=== PATIENT | female | born 1945 | race Caucasian/White ===

== ENCOUNTER 2018-04-14 12:40 | Inpatient (IN) | payer MEDICARE, BC ==
[2018-04-14] MEDS ORDERED: RX INFO: IV CONTRAST WAS GIVEN 1 EACH MISC MISCELLANE PRN (13:30)
--- NOTE | 2018-04-14 13:36 | ED ---
General Adult HPI - General Chief complaint: Neuro Symptoms/Deficit Stated complaint: poss stroke Time Seen by Provider: 04/14/18 13:16 Source: patient Mode of arrival: EMS Limitations: no limitations - History of Present Illness Initial comments: Patient is a 72-year-old female with a previous medical history of hypertension , and a "skipped heartbeat", who presents with a chief complaint of right-sided upper and lower extremity numbness starting at 9:00 this morning. The patient states that she had some trouble walking after and her noticed that she was veering to the right. The patient went to urgent care initially for evaluation and was sent to the emergency Department. Since that time her symptoms have completely resolved. Patient cannot identify an inciting incident. There are no aggravating or alleviating factors. The patient does not have any previous episodes the same. Patient states that she took 1 or 2 full-size aspirins prior to arrival. - Related Data Home Medications Medication Instructions Recorded Confirmed Diltiazem Cd [Cardizem Cd] 180 mg PO DAILY 04/14/18 04/14/18 Allergies Allergy/AdvReac Type Severity Reaction Status Date / Time No Known Allergies Allergy Verified 04/14/18 14:03 Review of Systems ROS Statement: Those systems with pertinent positive or pertinent negative responses have been documented in the HPI. ROS Other: All systems not noted in ROS Statement are negative. Neurological: Reports: weakness, numbness, paresthesias Past Medical History Past Medical History: Hypertension Additional Past Medical History / Comment(s): occasional "skipped heart beat" History of Any Multi-Drug Resistant Organisms: None Reported Past Surgical History: No Surgical Hx Reported Past Psychological History: No Psychological Hx Reported Smoking Status: Never smoker Past Alcohol Use History: Rare Past Drug Use History: None Reported General Exam Limitations: no limitations General appearance: alert, in no apparent distress Head exam: Present: atraumatic, normocephalic Eye exam: Present: normal appearance, PERRL, EOMI Pupils: Present: normal accommodation. Absent: irregular, unequal ENT exam: Present: normal exam, mucous membranes moist Neck exam: Present: normal inspection Respiratory exam: Present: normal lung sounds bilaterally. Absent: respiratory distress, wheezes Cardiovascular Exam: Present: regular rate, normal rhythm GI/Abdominal exam: Present: soft. Absent: distended, tenderness Rectal exam: Present: deferred Extremities exam: Present: normal inspection, full ROM Back exam: Present: normal inspection Neurological exam: Present: alert, oriented X3, CN II-XII intact, normal gait. Absent: motor sensory deficit Psychiatric exam: Present: normal affect, normal mood Skin exam: Present: warm, dry, intact Course Vital Signs 04/14/18 04/14/18 04/14/18 12:52 14:00 15:00 Temperature 98.7 F Pulse Rate 92 76 68 Respiratory 18 18 18 Rate Blood Pressure 168/77 164/78 161/74 O2 Sat by Pulse 96 96 96 Oximetry Medical Decision Making - Medical Decision Making Patient presents with a chief complaint of right-sided upper and lower extremity weakness and numbness. On initial evaluation, vital signs are stable , patient is in no acute distress. Patient's symptoms started at 9:00 this morning however they have completely resolved at this time, patient is not a TPA candidate given resolution of her symptoms. EKG performed at 1307 shows sinus rhythm with PVCs, ventricular rate is 73 bpm. EKG is otherwise unremarkable. Patient took 1-2 full-size aspirin prior to arrival to the emergency department. Patient will be evaluated CT of the head without contrast followed by CT angiogram of the head and neck. Patient cardiac labs were sent. Discussed disposition with the patient, I recommended admission for further workup. Patient is agreeable at this time. On initial evaluation, NIH stroke scale is 0. 3:53 PM Lab evaluation of this patient is unremarkable. Computed tomography scan of the head without contrast shows no acute process. CT angiogram of the neck does not show any evidence of aneurysm, or high-grade stenosis. This case was discussed with Dr. Baker who excepts admission. Care plan discussed with the patient, she is agreeable. - Lab Data Result diagrams: 04/14/18 13:10 04/14/18 13:10 Lab Results 04/14/18 04/14/18 04/14/18 Range/Units 13:01 13:10 13:10 WBC 5.4 (3.8-10.6) k/uL RBC 4.59 (3.80-5.40) m/uL Hgb 14.9 (11.4-16.0) gm/dL Hct 42.0 (34.0-46.0) % MCV 91.5 (80.0-100.0) fL MCH 32.4 (25.0-35.0) pg MCHC 35.4 (31.0-37.0) g/dL RDW 12.7 (11.5-15.5) % Plt Count 271 (150-450) k/uL Neutrophils % 56 % Lymphocytes % 32 % Monocytes % 7 % Eosinophils % 2 % Basophils % 1 % Neutrophils # 3.0 (1.3-7.7) k/uL Lymphocytes # 1.8 (1.0-4.8) k/uL Monocytes # 0.4 (0-1.0) k/uL Eosinophils # 0.1 (0-0.7) k/uL Basophils # 0.0 (0-0.2) k/uL Sodium 143 (137-145) mmol/L Potassium 3.7 (3.5-5.1) mmol/L Chloride 105 (98-107) mmol/L Carbon Dioxide 25 (22-30) mmol/L Anion Gap 13 mmol/L BUN 13 (7-17) mg/dL Creatinine 0.64 (0.52-1.04) mg/dL Est GFR (CKD-EPI)AfAm >90 (>60 ml/min/1.73 sqM) Est GFR (CKD-EPI)NonAf >90 (>60 ml/min/1.73 sqM) Glucose 86 (74-99) mg/dL POC Glucose (mg/dL) 90 (75-99) mg/dL POC Glu Supervisor Drapery Hanging ID Wander Spence Calcium 9.0 (8.4-10.2) mg/dL Magnesium 2.2 (1.6-2.3) mg/dL Troponin I (0.000-0.034) ng/mL NT-Pro-B Natriuret Pep pg/mL 04/14/18 04/14/18 Range/Units 13:10 13:10 WBC (3.8-10.6) k/uL RBC (3.80-5.40) m/uL Hgb (11.4-16.0) gm/dL Hct (34.0-46.0) % MCV (80.0-100.0) fL MCH (25.0-35.0) pg MCHC (31.0-37.0) g/dL RDW (11.5-15.5) % Plt Count (150-450) k/uL Neutrophils % % Lymphocytes % % Monocytes % % Eosinophils % % Basophils % % Neutrophils # (1.3-7.7) k/uL Lymphocytes # (1.0-4.8) k/uL Monocytes # (0-1.0) k/uL Eosinophils # (0-0.7) k/uL Basophils # (0-0.2) k/uL Sodium (137-145) mmol/L Potassium (3.5-5.1) mmol/L Chloride (98-107) mmol/L Carbon Dioxide (22-30) mmol/L Anion Gap mmol/L BUN (7-17) mg/dL Creatinine (0.52-1.04) mg/dL Est GFR (CKD-EPI)AfAm (>60 ml/min/1.73 sqM) Est GFR (CKD-EPI)NonAf (>60 ml/min/1.73 sqM) Glucose (74-99) mg/dL POC Glucose (mg/dL) (75-99) mg/dL POC Glu Supervisor Drapery Hanging ID Calcium (8.4-10.2) mg/dL Magnesium (1.6-2.3) mg/dL Troponin I <0.012 (0.000-0.034) ng/mL NT-Pro-B Natriuret Pep 62 pg/mL Disposition Clinical Impression: Transient cerebral ischemia Disposition: ADMITTED IP TO THIS HOSP Condition: Good Is patient prescribed a controlled substance at d/c from ED?: No Referrals: Nonstaff,Physician [REFERRING] - 1-2 days Decision to Admit Reason: Admit from EC - Out of Hospital Transfer - Req. Specs Out of Hospital Transfer - Requested Specifics: Telemetry Unit
[2018-04-14 13:42] LABS: Glucose,Whole Blood 90 mg/dL (75-99)
[2018-04-14 13:46] LABS: Basophils % (A) 1 %; Eosinophils # (A) 0.1 k/uL (0-0.7); Eosinophils % (A) 2 %; HGB 14.9 gm/dL (11.4-16.0); Lymphocytes # (A) 1.8 k/uL (1.0-4.8); Lymphocytes % (A) 32 %; MCH 32.4 pg (25.0-35.0); MCHC 35.4 g/dL (31.0-37.0); MCV 91.5 fL (80.0-100.0); Mean Platelet Volume 6.9; Monocytes # (A) 0.4 k/uL (0-1.0); Monocytes % (A) 7 %; Neutrophils % (A) 56 %; Platelet Count 271 k/uL (150-450); RBC 4.59 m/uL (3.80-5.40); RDW 12.7 % (11.5-15.5); WBC 5.4 k/uL (3.8-10.6)
[2018-04-14 13:55] LABS: Anion Gap 13 mmol/L; Blood Urea Nitrogen 13 mg/dL (7-17); Carbon Dioxide 25 mmol/L (22-30); Chloride 105 mmol/L (98-107); Glucose 86 mg/dL (74-99); Magnesium 2.2 mg/dL (1.6-2.3); Potassium 3.7 mmol/L (3.5-5.1); Sodium 143 mmol/L (137-145)
--- NOTE | 2018-04-14 14:31 | CT ---
EXAMINATION TYPE: CT brain wo con DATE OF EXAM: 04/14/2018 COMPARISON: NONE HISTORY: 72-year-old female with right paranasal sinuses and mastoid air cells well pneumatized. Orbi ts and globes are intact. Sided weakness TECHNIQUE: Examination was done in axial plane without intravenous contrast. Coronal and sagittal r econstructions performed. CT DLP: 945 mGycm Automated exposure control for dose reduction was used. FINDINGS: There is no evidence of acute intracranial hemorrhage, acute ischemic changes, mass, mass-effect, or extra-axial fluid collection. There is no effacement of cerebral sulci or basal subarachnoid cister ns. There is no hydrocephalus. There is no midline shift. Rosario-white matter distinction is preserv ed. There are mild white matter hypodensities especially in the biparietal lobes. Paranasal sinuses and mastoid air cells well pneumatized. Orbits and globes are intact. IMPRESSION: No acute intracranial abnormality seen. Mild patchy changes of chronic small vessel ischemic disease.
--- NOTE | 2018-04-14 14:39 | CT ---
EXAMINATION TYPE: CT angio head neck DATE OF EXAM: 04/14/2018 COMPARISON: CT brain same day HISTORY: 72-year-old female TECHNIQUE: Contiguous axial scanning of the head and neck performed with IV Contrast, patient injecte d with 65 mL of Isovue 370. Coronal/sagittal MIP reconstructions performed. 3-D reconstructions gener ated on a dedicated independent workstation. CT DLP: 945.5 mGycm Automated exposure control for dose reduction was used. FINDINGS: Neck: Some heterogeneous T2 the thyroid gland suggesting underlying 5 mm smaller nodules. Bovine configuration to the aortic arch. Patent arch vessel origins. The right common carotid artery is widely patent. There are mild apical scarring calcifications and p laque at the right carotid bulb. Mild tortuosity of the upper right internal carotid artery. The inte rnal carotid artery otherwise remains patent. The left common carotid artery is patent. Mild tortuosity upper left internal carotid artery. The int ernal carotid artery remains widely patent. The bilateral vertebral artery origins are patent. The vertebral arteries are codominant and remain p atent throughout their course. Head: The posterior circulation is patent. There is mild atherosclerotic narrowing of the bilateral supraclinoid internal carotid arteries. No significant stenosis, arterial occlusion, or aneurysmal change is seen. IMPRESSION: 1. NECK: ONLY MINIMAL ATHEROSCLEROTIC CHANGE AT THE RIGHT CAROTID BULB. NO HEMODYNAMICALLY SIGNIFICAN T STENOSIS OF THE CAROTID OR VERTEBRAL ARTERIES OF THE NECK. 2. HEAD: MILD ATHEROSCLEROTIC NARROWING OF THE BILATERAL SUPRACLINOID INTERNAL CAROTID ARTERIES. NO S IGNIFICANT STENOSIS OR ARTERIAL OCCLUSION SEEN.
[2018-04-14] MEDS ORDERED: NALOXONE 0.4 MG/ML 1 ML VIAL IV PRN (16:23)
--- NOTE | 2018-04-14 22:43 | HP ---
HISTORY AND PHYSICAL DATE OF SERVICE: 04/14/2018 PRESENTING COMPLAINT: Right-sided weakness and numbness. HISTORY OF PRESENTING COMPLAINT: A very pleasant 72-year-old patient who has just moved to town, has not established a family doctor. Patient had a history of hypertension, as then taken off medication. Blood pressure is controlled. Patient has had benign tremors. Patient around 9:00 this morning noticed that the right distal arm felt some numbness and tingling and the right leg was feeling a bit weird, slightly weak, an abnormal sensation. The patient took an aspirin and felt a bit better, then the symptoms came back again, and she continued to feel weak on the right side; apparently the right leg. The patient decided to come in. The right leg still feels the same after several hours. Denies any headache. No nausea, vomiting. No change in vision. Has no trouble swallowing. No prior history of stroke. Initial CT scan of the brain has been unremarkable. REVIEW OF SYSTEMS: CONSTITUTIONAL: None. HEENT: None. RESPIRATORY: None. CARDIOVASCULAR: None. GASTROINTESTINAL: None. GENITOURINARY: None. MUSCULOSKELETAL: None. DERMATOLOGICAL: None. HEMATOLOGICAL: None. LYMPHATICS: None. PSYCHIATRY: None. NEUROLOGICAL: As above except for some tremors. PAST MEDICAL HISTORY: 1. Hypertension, now not taking any medications. 2. Occasional skipped heartbeat. 3. Beginning of cataract. PAST SURGICAL HISTORY: 1. Adenoidectomy. 2. Tonsillectomy. 3. Colonoscopy. SOCIAL HISTORY: Patient smoked for about 12 years, stopped about 41 years ago. . Alcohol occasionally. FAMILY HISTORY: Reviewed; noncontributory to presentation. HOME MEDICATIONS: Cardizem CD 180 mg a day. ALLERGIES: NONE. PHYSICAL EXAMINATION: Temperature 98.7, pulse 72, respiration 18, blood pressure 168/77, pulse ox 96% on room air. GENERAL APPEARANCE: Average build. Lying in bed, comfortable. EYES: Pupils equal. Conjunctivae normal. HEENT: External appearance of nose and ears normal. Oral cavity normal. NECK: JVD not raised. Mass not palpable. RESPIRATORY: Effort normal. Lungs are clear. CARDIOVASCULAR: First and second sounds normal. No edema. ABDOMEN: Soft, nontender. Liver and spleen not palpable. LYMPHATIC: No lymph node palpable in neck or axillae. PSYCHIATRY: Alert and oriented x3. Mood and affect normal. NEUROLOGICAL: Pupils equal. Cranial nerves grossly intact. Power and sensation -- noted that patient's right leg power is 4/5, decreased compared to the left. otherwise is grossly preserved. ASSESSMENT: 1. Possible acute stroke, likely ischemic in nature, in a right-handed patient, manifesting as weakness predominantly in the right leg, some numbness and tingling in the right upper extremity, distal part, though that is somewhat improved. 2. Possible essential hypertension. 3. Benign essential tremors. PLAN: We will order a carotid Doppler, 2-D echo, MRI of the brain. Patient is started on aspirin and Lipitor. In the morning will check a lipid fasting profile. Will get Physical Therapy to see the patient. The patient wishes to follow up with Dr. Garcia after discharge and will establish the same. Care was discussed with the patient. Neurology was consulted. Neuro checks will be done. MMODL / IJN: [id number] /
[2018-04-15 06:16] LABS: Basophils % (A) 1 %; Eosinophils # (A) 0.2 k/uL (0-0.7); Eosinophils % (A) 3 %; HCT 43.7 % (34.0-46.0); HGB 15.1 gm/dL (11.4-16.0); Lymphocytes # (A) 1.7 k/uL (1.0-4.8); Lymphocytes % (A) 31 %; MCH 32.3 pg (25.0-35.0); MCHC 34.5 g/dL (31.0-37.0); MCV 93.8 fL (80.0-100.0); Mean Platelet Volume 7.3; Monocytes # (A) 0.3 k/uL (0-1.0); Monocytes % (A) 5 %; Neutrophils # (A) 3.1 k/uL (1.3-7.7); Neutrophils % (A) 58 %; Platelet Count 242 k/uL (150-450); RBC 4.66 m/uL (3.80-5.40); RDW 12.8 % (11.5-15.5); WBC 5.4 k/uL (3.8-10.6)
[2018-04-15 06:28] LABS: Anion Gap 13 mmol/L; Blood Urea Nitrogen 12 mg/dL (7-17); Calcium 9.1 mg/dL (8.4-10.2); Carbon Dioxide 26 mmol/L (22-30); Chloride 104 mmol/L (98-107); Cholesterol 205 mg/dL (<200); Glucose 136 mg/dL (74-99); HDL Cholesterol 62 mg/dL (40-60); LDL Cholesterol,Calculated 105 mg/dL (0-99); Potassium 3.4 mmol/L (3.5-5.1); Sodium 143 mmol/L (137-145); Triglycerides 190 mg/dL (<150)
[2018-04-15] MEDS: ENOXAPARIN 40 MG/0.4 ML SYRINGE SQ SCH (08:21)
[2018-04-15] MEDS: DILTIAZEM CD 180 MG CAP.ER.24H PO SCH (08:21)
[2018-04-15] MEDS: ATORVASTATIN 40 MG TAB PO SCH (08:21)
[2018-04-15] MEDS: ASPIRIN 325 MG TAB PO SCH (08:21)
--- NOTE | 2018-04-15 09:29 | CONS ---
CONSULTATION DATE OF CONSULTATION: 04/14/2018 CHIEF COMPLAINT: Transient ischemic attack. HISTORY OF PRESENT ILLNESS: The patient is a pleasant 72-year-old female who is being evaluated by the neurology service per the request of Dr. Baker for a transient ischemic attack. The patient was brought into [facility] Emergency Room after she had a sudden onset of numbness and tingling involving her right side. The patient also noticed some weakness on that side. The patient noticed that she was having difficulty walking and she was veering to the right side. She initially went to an urgent care clinic and then was brought to the emergency room. She denies any previous symptoms similar to this, but does report a family history of strokes. She is not on any antiplatelet medication at home. A CT scan of the brain was done, which showed no acute abnormalities. She did have small vessel ischemic changes. A CT angiogram of the brain and neck were reviewed and they showed no significant stenosis. Her CBC, basic metabolic profile and cardiac enzymes were normal. At the time of my evaluation, the patient was lying in her bed and appears to be in no acute distress. She denied any recurrence of any neurological symptoms since her arrival. Overall, her right-sided numbness and weakness lasted approximately half one hour. PAST MEDICAL HISTORY: Hypertension. SOCIAL HISTORY: She denies any tobacco or drug use. She rarely drinks alcohol. FAMILY HISTORY: Positive for strokes. HOME MEDICATIONS: Reviewed in the chart. ALLERGIES: No known drug allergies. REVIEW OF SYSTEM: CONSTITUTIONAL: Negative. EYES: Negative. HEENT: Negative. CARDIOVASCULAR: Negative. RESPIRATORY: Negative. NEUROLOGICAL: As mentioned above. GASTROINTESTINAL: Negative. PSYCHIATRIC: Negative. MUSCULOSKELETAL: Negative. DERMATOLOGICAL: Negative. ENDOCRINE: Negative. PHYSICAL EXAM: Vital signs show a temperature of 97.1, pulse 80, respirations 16, blood pressure 162/71. GENERAL APPEARANCE: The patient is a well-developed female who appears to be in no acute distress. HEENT: Normocephalic, atraumatic, no facial asymmetry is seen. NECK: Supple with no masses felt. CARDIOVASCULAR: Regular rate and rhythm. ABDOMEN: Nontender, nondistended. Extremities showed no edema or clubbing. NEUROLOGICAL EXAM: The patient is alert, aware and oriented x3. Speech and language are normal. Strength is full in all 4 extremities. Sensory exam was normal to light touch in all 4 extremities. No facial asymmetry is seen on cranial nerve testing. No tremors or seizure-like activity is seen. IMPRESSION: 1. Transient ischemic attack. 2. Right hemiparesis, resolved. 3. Right-sided numbness, resolved. 4. Small vessel ischemic disease. 5. Hypertension. RECOMMENDATION: The patient does appear to have suffered a transient ischemic attack with a transient episode of right-sided numbness and weakness. Her symptoms continue to be resolved at this time. I will keep her on aspirin [address] angiogram showed no significant stenosis. I will order a fasting lipid panel, EEG, and serum homocysteine level. Continue IV hydration as tolerated. I discussed with the patient her risk factors for future strokes. She was advised to seek immediate medical attention if any further stroke-like symptoms occur. I will continue to follow with you. Further recommendations to follow. Thank you for allowing me to participate in the care of your patient. If you have any questions, please feel free to contact me. ELO / OLLIE: [id number] /
[2018-04-15 12:14] VITALS: RESP 18
--- NOTE | 2018-04-15 14:11 | EEG ---
ELECTROENCEPHALOGRAM REPORT DATE OF SERVICE: 04/15/2018 REASON FOR TESTING: Transient ischemic attack. DESCRIPTION OF THE PROCEDURE: This EEG was performed using a 21 channel digital electroencephalograph, following international 10-20 system. DESCRIPTION OF THE RECORDING: From the beginning of the tracing, and with the patient's eyes closed, the background rhythm was mostly consisting of 10 Hz alpha frequency in the posterior occipital leads. No obvious asymmetry is seen. Photic stimulation was performed with a minimal driving response seen. No pathological waves were elicited. Hyperventilation was not performed. Rare movement artifacts are seen. The patient does reach stage II of sleep during the tracing and occasional sleep spindles are seen. No epileptiform discharges were seen throughout the tracing. Her EKG lead showed a regular rate and rhythm. INTERPRETATION: This asleep and awake EEG can be considered within normal limits. There was no asymmetry seen. No epileptiform discharges were noticed. The absence of epileptiform discharges does not rule out the diagnosis of epilepsy, therefore clinical correlation is recommended. MMANGELIA / OLLIE: [id number] /
--- NOTE | 2018-04-15 16:19 | P.PN ---
Subjective Progress Note Date: 04/15/18 Patient is a pleasant 72-year-old female who is being followed by the neurology service for transient ischemic attack. Patient had sudden onset of numbness and tingling in the right side. Patient states she is not quite back to baseline yet. Patient noticed right lower extremity weakness as compared to the left side. Patient came to [facility] for further evaluation. Computed tomography scan of the brain was done which showed no acute abnormalities. Computed tomography scan did show small vessel ischemic changes. CT angios of the brain and neck were reviewed and showed no significant stenosis. Patient denies being on antiplatelet therapy at home. At the time of my evaluation, patient is lying in bed and appears to be in no acute distress. Patient denies any worsening of neurological symptoms. Objective - Vital Signs Vital signs: Vital Signs Temp 97.5 F L 04/15/18 04:00 Pulse 100 04/15/18 12:00 Resp 18 04/15/18 12:00 BP 181/87 04/15/18 12:00 Pulse Ox 94 L 04/15/18 12:00 Intake & Output 04/14/18 04/15/18 04/15/18 18:59 06:59 18:59 Intake Total 240 477 Balance 240 477 Weight 62.9 kg 62 kg Intake: Oral 240 477 Other: Voiding Method Toilet Toilet # Voids 1 1 - Exam PHYSICAL EXAM: GENERAL APPEARANCE: Patient is a well-developed, female who appears to be in no acute distress. HEENT: Normocephalic, atraumatic, no facial asymmetry is seen. Neck is supple with no masses felt. CARDIOVASCULAR: Regular rate and rhythm. ABDOMEN: Nontender, nondistended. EXTREMITIES: Show no edema or clubbing. NEUROLOGICAL EXAM: Patient is awake, alert, and oriented 3. Speech and then which are normal. Strength is full in bilateral upper extremities. Strength is 5 minus/5 in right lower extremity and 5/5 in left lower extremity. Sensory exam is normal to light touch in all 4 extremities. No facial asymmetry seen on cranial nerve testing. No tremors or seizure-like activity noted. Sensory exam is normal to light touch - Labs CBC & Chem 7: 04/15/18 05:30 04/15/18 05:30 Labs: Abnormal Lab Results - Last 24 Hours (Table) 05/16/18 Range/Units 05:30 Potassium 3.4 L (3.5-5.1) mmol/L Glucose 136 H (74-99) mg/dL Triglycerides 190 H (<150) mg/dL Cholesterol 205 H (<200) mg/dL LDL Cholesterol, Calc 105 H (0-99) mg/dL HDL Cholesterol 62 H (40-60) mg/dL Assessment and Plan Plan: Impression: 1. Transient ischemic attack 2. Right hemiparesis, resolving 3. Right-sided numbness, resolved 4. Small vessel ischemic disease 5. Hypertension Recommendation: Patient does appear to have suffered a transient ischemic attack with a transient episode of right-sided numbness and weakness. Right lower extremity weakness is improved but continues. Patient was working with physical therapy this morning and reports difficulty ambulating. I recommend to continue aspirin 325 mg daily. As you recall, CT angiogram did not show any significant stenosis. I will order an MRI. Lipid panel is elevated and I recommend to continue statin. EEG was normal. I recommend good blood pressure control as it has been elevated at times. Serum homocystine level is pending. Continue current medical management. Continue neurological checks. I will continue to follow with you. Further recommendations to follow. I performed an examination of the patient and discussed the management with the SCREEN OPERATOR. I have reviewed the SCREEN OPERATOR notes and agree with the findings and plan of care.
--- NOTE | 2018-04-15 19:44 | PN ---
PROGRESS NOTE DATE OF SERVICE: 04/15/2018 PRESENTING COMPLAINT: Possible stroke. INTERVAL HISTORY: This patient presented with right arm weakness, right leg weakness. Overnight patient's right leg has still remained weak and having some trouble with the right hand, dropping things. Pending MRI. No other new neurological symptoms. REVIEW OF SYSTEMS: Done for constitutional, cardiovascular, GI, pulmonary, neuro; relevant findings as above. CURRENT MEDICATIONS: Reviewed. They include aspirin, Lipitor, Cardizem CD. PHYSICAL EXAMINATION: Temperature 97.5, pulse 70, respiration 16, blood pressure 164/71, pulse ox 93% on room air. GENERAL APPEARANCE: Sitting up, comfortable. EYES: Pupils equal. Conjunctivae normal. HEENT: External appearance of nose and ears normal. Oral cavity normal. NECK: JVD not raised. Mass not palpable. RESPIRATORY: Effort normal. Lungs are clear. CARDIOVASCULAR: First and second sounds normal. No edema. ABDOMEN: Soft, nontender. Liver and spleen not palpable. PSYCHIATRY: Alert and oriented x3. Mood and affect normal. NEUROLOGICAL: Power on the right leg is 4/5. Patient also has right distal arm weakness in fine movements. INVESTIGATIONS: EEG came back within normal limits. ASSESSMENT: 1. Acute stroke, likely ischemic in nature, in a right-handed patient with persistent weakness. 2. Essential hypertension. 3. Benign essential tremors. 4. Hyperlipidemia, uncontrolled, with an LDL of 105 and triglycerides of 190. PLAN: Continue current medication and treatment plan. Care was discussed with the patient. Awaiting MRI. Patient was seen by Physical Therapy. MMTHIAGOL / SUKHDEEPN: [id number] /
--- NOTE | 2018-04-15 20:16 | ECHOF ---
Referral Reason:r/o thrombus MEASUREMENTS -------- HEIGHT: 157.5 cm WEIGHT: 59.9 kg BP: 181/80 RVIDd: 2.8 cm (< 3.3) IVSd: 1.3 cm (0.6 - 1.1) LVIDd: 4.0 cm (3.9 - 5.3) LVPWd: 1.3 cm (0.6 - 1.1) IVSs: 1.5 cm LVIDs: 2.8 cm LVPWs: 1.4 cm LA Diam: 2.8 cm (2.7 - 3.8) LAESV Index (A-L): 21.52 ml/m Ao Diam: 2.5 cm (2.0 - 3.7) AV Cusp: 2.0 cm (1.5 - 2.6) MV EXCURSION: 17.614 mm (> 18.000) MV EF SLOPE: 117 mm/s (70 - 150) EPSS: 0.2 cm MV E Ishmael: 0.57 m/s MV DecT: 247 ms MV A Ishmael: 0.74 m/s MV E/A Ratio: 0.77 FINDINGS -------- Sinus rhythm. This was a technically adequate study. The left ventricular size is normal. There is mild concentric left ventricular hypertrophy. Overa ll left ventricular systolic function is normal with, an EF between 55 - 60 %. The right ventricle is normal in size. Normal LA size by volume 22+/-6 ml/m2. The right atrium is normal in size. There is mild aortic valve sclerosis. The mitral valve is normal. The tricuspid valve appears structurally normal. There is no pulmonic regurgitation present. The aortic root size is normal. Normal inferior vena cava with normal inspiratory collapse consistent with estimated right atrial pre ssure of 5 mmHg. There is no pericardial effusion. CONCLUSIONS -------- 1. Sinus rhythm. 2. This was a technically adequate study. 3. The left ventricular size is normal. 4. There is mild concentric left ventricular hypertrophy. 5. Overall left ventricular systolic function is normal with, an EF between 55 - 60 %. 6. Normal LA size by volume 22+/-6 ml/m2. 7. There is mild aortic valve sclerosis. 8. The mitral valve is normal. 9. The tricuspid valve appears structurally normal. 10. There is no pulmonic regurgitation present. 11. The aortic root size is normal. 12. Normal inferior vena cava with normal inspiratory collapse consistent with estimated right atrial pressure of 5 mmHg. 13. There is no pericardial effusion. WAREHOUSE ASSOCIATE: Tiffanie Palma RDCS
[2018-04-15] MEDS ORDERED: POTASSIUM CHLORIDE ER 20 MEQ TAB.ER PO STA (21:55)
[2018-04-15] MEDS ORDERED: MELATONIN 5 MG TABLET PO SCH (22:00)
--- NOTE | 2018-04-16 00:02 | MR ---
History right-sided weakness. Comparison none. TECHNIQUE: Multiplanar multiecho imaging of the brain was performed with no contrast. FINDINGS: There is mild cerebral cortical atrophy appropriate for age. There is no mass effect nor midline shif t. There is no evidence of intracranial hemorrhage. There is a 2 x 1 cm area of increased signal on t he diffusion images in the villalobos-white matter junction left parietal lobe. There are some patchy areas of increased signal in the periventricular white matter on the T2 and FLAIR images. There are small foci of increased signal also in the central terrence that measure less than 5 mm. The total number is m ore than 20 and these measure up to 1.5 cm. There is a small mucous retention cyst in the right side of sphenoid sinus. Sella turcica appears normal. CONCLUSION: Numerous white matter lesions could relate to demyelinating disease or chronic small vessel ischemia. There is evidence for an acute lacunar infarct in the left parietal lobe white matter. No evidence of cortical infarct.
[2018-04-16 06:17] LABS: Anion Gap 12 mmol/L; Blood Urea Nitrogen 16 mg/dL (7-17); Calcium 8.9 mg/dL (8.4-10.2); Carbon Dioxide 24 mmol/L (22-30); Chloride 107 mmol/L (98-107); Glucose 108 mg/dL (74-99); Sodium 143 mmol/L (137-145)
[2018-04-16] MEDS: ASPIRIN 325 MG TAB PO SCH (08:22)
[2018-04-16] MEDS: ATORVASTATIN 40 MG TAB PO SCH (08:22)
[2018-04-16] MEDS: ENOXAPARIN 40 MG/0.4 ML SYRINGE SQ SCH (08:22)
[2018-04-16] MEDS: DILTIAZEM CD 180 MG CAP.ER.24H PO SCH (08:22)
[2018-04-16 08:29] VITALS: PULSE 97
[2018-04-16 12:01] VITALS: BP 133/80; TEMP 97.7
--- NOTE | 2018-04-16 17:47 | P.PN ---
Subjective Progress Note Date: 04/16/18 Patient is a pleasant 72-year-old female who is being followed by the neurology service for transient ischemic attack. Patient had sudden onset of numbness and tingling in the right side. Patient states she is not quite back to baseline yet. Patient noticed right lower extremity weakness as compared to the left side. Patient came to [facility] for further evaluation. Computed tomography scan of the brain was done which showed no acute abnormalities. Computed tomography scan did show small vessel ischemic changes. CT angios of the brain and neck were reviewed and showed no significant stenosis. Patient denies being on antiplatelet therapy at home. At the time of my evaluation, patient is lying in bed and appears to be in no acute distress. Patient denies any worsening of neurological symptoms. 04/16/2018 Patient is a pleasant 72-year-old female who is being followed by the neurology service for CVA. Patient came to [facility] with sudden onset of numbness and tingling on the right side. Patient does state this continues but to a lesser degree. CT of the brain showed no acute abnormalities. CTA of the brain and neck showed no significant stenosis. MRI of the brain showed left parietal lobe acute lacunar infarct. No new neurological complaints. At the time of my evaluation, patient's sitting up in bed and preparing to go home. Objective - Vital Signs Vital signs: Vital Signs Temp 97.7 F 04/16/18 11:58 Pulse 97 04/16/18 11:58 Resp 18 04/16/18 11:58 BP 133/80 04/16/18 11:58 Pulse Ox 94 L 04/16/18 11:58 Intake & Output 04/15/18 04/16/18 04/16/18 18:59 06:59 18:59 Intake Total 713 Balance 713 Weight 62.2 kg Intake: Oral 713 Other: Voiding Method Toilet Toilet # Voids 1 1 - Exam PHYSICAL EXAM: GENERAL APPEARANCE: Patient is a well-developed, female who appears to be in no acute distress. HEENT: Normocephalic, atraumatic, no facial asymmetry is seen. Neck is supple with no masses felt. CARDIOVASCULAR: Regular rate and rhythm. ABDOMEN: Nontender, nondistended. EXTREMITIES: Show no edema or clubbing. NEUROLOGICAL EXAM: Patient is awake, alert, and oriented 3. Speech and then which are normal. Strength is full in bilateral upper extremities. Strength is 5 minus/5 in right lower extremity and 5/5 in left lower extremity. Sensory exam is normal to light touch in all 4 extremities. No facial asymmetry seen on cranial nerve testing. No tremors or seizure-like activity noted. - Labs CBC & Chem 7: 04/15/18 05:30 04/16/18 05:23 Labs: Abnormal Lab Results - Last 24 Hours (Table) 04/16/18 Range/Units 05:23 Glucose 108 H (74-99) mg/dL Assessment and Plan Plan: Impression: 1. CVA 2. Right hemiparesis, resolving 3. Right-sided numbness, resolved 4. Small vessel ischemic disease 5. Hypertension Recommendation: Patient does appear to have suffered a cerebrovascular accident with right-sided numbness and weakness. Right lower extremity weakness is improved but continues. Patient was working with physical therapy this morning and reports difficulty ambulating. I recommend to continue aspirin 325 mg daily. As you recall, CT angiogram did not show any significant stenosis. MRI of the brain showed left parietal lobe acute lacunar infarct. Lipid panel is elevated and I recommend to continue statin. EEG was normal. I recommend adjusting blood pressure medication as blood pressure has been elevated at times. Serum homocystine level is normal. Continue current medical management. Continue neurological checks. Continue physical therapy as outpatient. Patient is stable from a neurological standpoint for discharge. I will continue to follow with you on an as-needed basis. Feel free to call with any questions or concerns I performed an examination of the patient and discussed the management with the SAIL MAKER. I have reviewed the SAIL MAKER notes and agree with the findings and plan of care.
--- NOTE | 2018-04-17 07:19 | DS ---
DISCHARGE SUMMARY DATE OF ADMISSION: 04/14/18. DATE OF DISCHARGE: April 16, 2018. FINAL DIAGNOSES: 1. Acute stroke in the left parietal area in the subcortical area, ischemic in nature, in a right-handed patient. 2. Essential hypertension. 3. Benign essential tremors. 4. Hyperlipidemia uncontrolled with LDL of 105 and triglycerides of 190. CONSULTATION: Dr. Watkins. HOSPITAL COURSE: This is a very pleasant patient presented with weakness on the right leg and clumsiness of the right distal arm. MRI did confirm a subcortical infarct in the left parietal lobe. EEG was unremarkable. 2D echo showed preserved LV function. No thrombus was reported. CT angio unremarkable. Today care was discussed with the patient and . On examination power on the right leg is 4/5 and of some weakness of the right arm distal movements. DISCHARGE MEDICATIONS: 1. Cardizem CD 180 mg a day. 2. Aspirin 81 mg a day. 3. Lipitor 40 mg a day. FOLLOWUP: Follow up with Dr. Garcia on 04/20/2018, follow up with Dr. Watkins in 2 weeks. Visiting home nurses will do home PT/OT. Copy to Dr. Garcia. MMODL / IJN: [id number] /
== END 2018-04-16 16:08 | disposition home health service (06) | DRG 65 ==
LOC: EC 12:40 → 6SEL 16:23 → OBSVTOIN 04-16 11:21
PROVIDERS: ADMIT Hospitalist; ATTEND Hospitalist
DX: I63.9 Cerebral infarction, unspecified (principal); G81.91 Hemiplegia, unspecified affecting right dominant side; R40.2142 Coma scale, eyes open, spontaneous, at arrival to emergency department; R40.2362 Coma scale, best motor response, obeys commands, at arrival to emergency department; R40.2252 Coma scale, best verbal response, oriented, at arrival to emergency department; R29.700 NIHSS score 0; I10 Essential (primary) hypertension; G25.0 Essential tremor; E78.5 Hyperlipidemia, unspecified; H26.9 Unspecified cataract; Z87.891 Personal history of nicotine dependence; Z79.899 Other long term (current) drug therapy; Z82.3 Family history of stroke
CPT/HCPCS: 36415; 70450; 70496; 70498; 70551; 80048; 80061; 83090; 83735; 83880; 84484; 85025; 93005; 93306; 95819; 99285

== ENCOUNTER → 2018-07-21 | Outpatient (CLI) | payer BC, MEDICARE ==
[2018-07-21 07:58] LABS: Blood Urea Nitrogen 16 mg/dL (7-17)
--- NOTE | 2018-07-21 09:24 | MR ---
EXAMINATION TYPE: MR brain wo/w con DATE OF EXAM: 07/21/2018 COMPARISON: 04/15/2018 HISTORY: CVA TECHNIQUE: Multiplanar, multisequence images of the brain and brainstem is performed without and with IV contras t, utilizing 6.5 mL intravenous Gadavist . FINDINGS: Diffusion weighted images demonstrate no evidence of a recent infarct or other diffusion ab normality. There is diffuse and numerous focal areas of abnormal signal scattered throughout the white matter bi laterally compatible with remote ischemia. More focal localized area of abnormal signal within the de ep white matter adjacent to the left lateral ventricle is compatible area of previous infarct. There is no mass effect or midline shift. Areas of abnormal signal the terrence are stable likely the bas is of tiny remote areas of ischemia. Changes of chronic sinusitis seen. Thank enhancement in the right cerebellum likely is vascular. I re present tiny venous angioma. Area of abnormal signal involving the right basal ganglia is compatible with a tiny remote lacunar infarct. Midline structures demonstrate normal morphology. The craniocervical junction appears within normal limits. Post contrast images demonstrate no abnormal enhancement. The dural venous sinuses appear pa tent. The visualized sinuses are clear and the globes are intact. IMPRESSION: 1. Diffuse changes within the white matter are nonspecific but most typical of remote ischemia.
== END ==
LOC: RADMRIMAIN 07:09
PROVIDERS: ATTEND Psychiatry & Neurology Neurology
DX: I63.9 Cerebral infarction, unspecified (principal)
CPT/HCPCS: 82565; 84520; 70553; 36415; A9581

== ENCOUNTER → 2019-06-16 | Outpatient (CLI) | payer MEDICARE, BC ==
--- NOTE | 2019-06-17 11:30 | MM ---
Reason for exam: screening (asymptomatic). History: Patient is postmenopausal. Took estrogen for 1 year. Physical Findings: A clinical breast exam by your physician is recommended on an annual basis and results should be correlated with mammographic findings. MG 3D Screening Mammo W/Cad Bilateral CC and MLO view(s) were taken. No prior studies available for comparison. The breast tissue is heterogeneously dense. This may lower the sensitivity of mammography. There are benign appearing round dystrophic calcifications bilaterally. There is no discrete abnormality. ASSESSMENT: Benign, BI-RAD 2 RECOMMENDATION: Routine screening mammogram of both breasts in 1 year.
== END | disposition home or self-care (01) ==
LOC: RADMAMWWP 09:02
PROVIDERS: ATTEND Family Medicine
DX: Z12.31 Encounter for screening mammogram for malignant neoplasm of breast (principal)
CPT/HCPCS: 77063; 77067

== ENCOUNTER 2019-06-30 07:17 | Day surgery (SDC) | payer MEDICARE, BC ==
[2019-06-25 11:06] VITALS: BMI 27.2
[~2019-06-30 07:17] MED LIST: LACTATED RINGERS 1,000 ML IV SCH; LIDOCAINE 1% 20 ML VIAL (10MG/ML) FOR IV START INTRADERMA PRN
[2019-06-30 08:01] VITALS: TEMP 98.8
[2019-06-30] MEDS ORDERED: LIDOCAINE 1% INJ 10MG/ML (20 ML MDV) ONE (08:20)
[2019-06-30] MEDS ORDERED: PROPOFOL 10 MG/ML 20 ML VIAL IV ONE (08:20)
--- NOTE | 2019-06-30 08:36 | P.PCN ---
Date of Procedure: 06/30/19 Procedure(s) Performed: BRIEF HISTORY: Patient is a 73-year-old pleasant female scheduled for an elective colonoscopy as a part of screening for colorectal neoplasia. PROCEDURE PERFORMED: Colonoscopy with snare polypectomy. PREOPERATIVE DIAGNOSIS: Screening for colon cancer. IV sedation per Anesthesia. PROCEDURE: After informed consent was obtained, the patient, was brought into the endoscopy unit. IV sedation was administered by Anesthesia under continuous monitoring. Digital rectal examination was normal. Initially the Olympus CF-160 flexible video colonoscope was then inserted in the rectum, gradually advanced into the cecum without any difficulty. Careful examination was performed as the scope was gradually being withdrawn. Ileocecal valve and the appendiceal orifice were visualized and appeared normal. Prep was excellent. Mucosa of the cecum, appeared normal. In the ascending colon there was a 5 mm and 1 cm broad-based polyps removed by snare polypectomy. In the hepatic flexure there was another 1 cm broad-based polyp removed with snare polypectomy. ascending colon, transve rse colon, descending colon, sigmoid colon, and rectum appeared normal. The sigmoid colon there was a 5 mm sessile polyp and a 3 mm mid rectal polyp both of which were removed by snare polypectomy. Scattered sigmoid diverticulosis seen. Retroflexion was performed in the rectum and no lesions were seen. The patient tolerated the procedure well. IMPRESSION: 5 mm and 1 cm broad-based ascending colon polyps status post polypectomy 1 cm broad-based hepatic flexure polyp status post polypectomy 5 mm sessile; polyp status post snare polypectomy 3 mm mid rectal polyp status post snare polypectomy RECOMMENDATIONS: Findings of this examination were discussed with the patient as well his family..
[2019-06-30 09:04] VITALS: BP 137/84; PULSE 70; RESP 16
== END 2019-06-30 09:25 | disposition home or self-care (01) ==
LOC: ORWHC2ENDO 07:17
PROVIDERS: ATTEND Internal Medicine Gastroenterology
DX: Z12.11 Encounter for screening for malignant neoplasm of colon (principal); K57.30 Diverticulosis of large intestine without perforation or abscess without bleeding; D12.2 Benign neoplasm of ascending colon; D12.3 Benign neoplasm of transverse colon; D12.5 Benign neoplasm of sigmoid colon; K62.1 Rectal polyp; I10 Essential (primary) hypertension; E78.5 Hyperlipidemia, unspecified; Z87.891 Personal history of nicotine dependence; Z79.82 Long term (current) use of aspirin; Z79.899 Other long term (current) drug therapy
CPT/HCPCS: 88305; 45385; J2001; J2704

== ENCOUNTER → 2022-02-25 | Outpatient (CLI) | payer BC, MEDICARE ==
--- NOTE | 2022-02-25 11:50 | MR ---
EXAMINATION TYPE: MR brain wo/w con DATE OF EXAM: 02/25/2022 COMPARISON: MR brain 07/21/2018 HISTORY: Amnesia for approximately a 6 hour time span TECHNIQUE: Multiplanar, multisequence images of the brain and brainstem is performed without and with IV contras t, utilizing 6.5 mL intravenous Gadavist . FINDINGS: Diffusion weighted images demonstrate no evidence of a recent infarct or other diffusion ab normality. There is no extra-axial fluid collection. Periventricular hyperintensity has become somew hat more confluent along the posterior horns of the lateral ventricles, there are areas of encephalom alacia seen in the pericallosal region, periventricular white matter similar to prior. Somewhat more extensive deep white matter hyperintensity is noted in the periventricular, subcortical and deep whit e matter compared to prior exam, abnormal signal again noted within the terrence similar to prior. Along the posterior corpus callosum there is hyperintensity and inversion recovery T2-weighted sequences, l ow signal on T1-weighted images which has developed in the interval. Probable Virchow-Ayush band spac es noted within the basal ganglia again noted. The ventricular system and cisternal spaces are normal in size and appearance. The brain volume is age appropriate, there is age-related atrophy. Midline structures demonstrate near stable morphology. The craniocervical junction appears within no rmal limits. Post contrast images demonstrate no abnormal enhancement. The dural venous sinuses appe ar patent. The visualized sinuses are showing inflammatory change in the ethmoid air cells, and the g lobes are intact. IMPRESSION: There is some interval development of abnormal signal involving the posterior aspect of t he carpus callosum, there may be progression and white matter small vessel ischemic changes, multiple sclerosis not excluded. Sinus disease.
== END | disposition home or self-care (01) ==
LOC: RADMRIMAIN 09:05
PROVIDERS: ATTEND Family Medicine
DX: J32.9 Chronic sinusitis, unspecified (principal); R90.89 Other abnormal findings on diagnostic imaging of central nervous system; R41.3 Other amnesia
CPT/HCPCS: 70553; A9585

== ENCOUNTER 2024-01-28 13:50 | Emergency (ER) | payer MEDICARE, OTHER ==
[2024-01-28 14:18] VITALS: TEMP 97.9
[2024-01-28 14:20] LABS: Glucose,Whole Blood 91 mg/dL (70-110)
--- NOTE | 2024-01-28 14:20 | ED ---
Neuro HPI - General Chief Complaint: Neuro Symptoms/Deficit Stated Complaint: neuro sympt Time Seen by Provider: 01/28/24 14:10 Source: patient, RN notes reviewed, old records reviewed Mode of arrival: ambulatory Limitations: no limitations - History of Present Illness Is the patient presenting with stroke symptoms?: Yes -: hour(s) Initial Comments: This is a 78-year-old female to the ER for evaluation of signs and symptoms of CVA patient comes to the ER today transfer from an urgent care. Patient was seen there for neurological symptoms some difficulty with thought process dizziness and some slurred speech history of TIA current TIA symptoms and patient's symptoms are dramatically improved and she has no current complaints Location: speech, dysarthria, right arm, right leg History of same: Yes Quality: weak, tingling Improves With: time Worsens With: none Context: gradual onset Associated Symptoms: confusion Treatments Prior to Arrival: none - Related Data Home Medications: Home Medications Medication Instructions Recorded Confirmed Ubidecarenone [Co Q-10] 100 mg PO PC-SUPPER 06/25/19 01/28/24 Cholecalciferol [Vitamin D3 (25 25 mcg PO PC-SUPPER 01/28/24 01/28/24 Mcg = 1000 Iu)] Cyanocobalamin (Vitamin B-12) 1,000 mcg PO PC-SUPPER 01/28/24 01/28/24 [Vitamin B-12] Metoprolol Succinate (ER) [Toprol 50 mg PO DAILY 01/28/24 01/28/24 Xl] Vitamin C Plus 1 tab PO DAILY 01/28/24 01/28/24 Vitamin E (Dl,Tocopheryl Acet) 400 unit PO PC-SUPPER 01/28/24 01/28/24 [Vitamin E (400 Iu = 180 mg)] Allergies/Adverse Reactions: Allergies Allergy/AdvReac Type Severity Reaction Status Date / Time No Known Allergies Allergy Verified 01/28/24 15:07 Review of Systems ROS Statement: Those systems with pertinent positive or pertinent negative responses have been documented in the HPI. ROS Other: All systems not noted in ROS Statement are negative. General Exam Limitations: no limitations General appearance: alert, in no apparent distress Head exam: Present: atraumatic, normocephalic, normal inspection Eye exam: Present: normal appearance, PERRL, EOMI. Absent: scleral icterus, conjunctival injection, periorbital swelling ENT exam: Present: normal exam, mucous membranes moist Neck exam: Present: normal inspection. Absent: tenderness, meningismus, lymphadenopathy Respiratory exam: Present: normal lung sounds bilaterally. Absent: respiratory distress, wheezes, rales, rhonchi, stridor Cardiovascular Exam: Present: regular rate, normal rhythm, normal heart sounds. Absent: systolic murmur, diastolic murmur, rubs, gallop, clicks GI/Abdominal exam: Present: soft, normal bowel sounds. Absent: distended, tenderness, guarding, rebound, rigid Extremities exam: Present: normal inspection, full ROM, normal capillary refill. Absent: tenderness, pedal edema, joint swelling, calf tenderness Back exam: Present: normal inspection Neurological exam: Present: alert, oriented X3, CN II-XII intact Psychiatric exam: Present: normal affect, normal mood Skin exam: Present: warm, dry, intact, normal color. Absent: rash Stroke MDM - Lab Data Result diagrams: 01/28/24 14:19 01/28/24 14:19 Lab Results 01/28/24 01/28/24 01/28/24 Range/Units 14:18 14:19 14:19 WBC 6.5 (3.8-10.6) k/uL RBC 4.57 (3.80-5.40) m/uL Hgb 15.2 (11.4-16.0) gm/dL Hct 44.4 (34.0-46.0) % MCV 97.1 (80.0-100.0) fL MCH 33.3 (25.0-35.0) pg MCHC 34.3 (31.0-37.0) g/dL RDW 12.4 (11.5-15.5) % Plt Count 243 (150-450) k/uL MPV 8.1 Neutrophils % 52 % Lymphocytes % 38 % Monocytes % 6 % Eosinophils % 1 % Basophils % 1 % Neutrophils # 3.4 (1.3-7.7) k/uL Lymphocytes # 2.5 (1.0-4.8) k/uL Monocytes # 0.4 (0-1.0) k/uL Eosinophils # 0.1 (0-0.7) k/uL Basophils # 0.0 (0-0.2) k/uL PT 10.2 (10.0-12.5) sec INR 0.9 (<1.2) APTT 23.0 (22.0-30.0) sec Sodium (137-145) mmol/L Potassium (3.5-5.1) mmol/L Chloride (98-107) mmol/L Carbon Dioxide (22-30) mmol/L Anion Gap mmol/L BUN (7-17) mg/dL Creatinine (0.52-1.04) mg/dL Est GFR (CKD-EPI)AfAm (>60 ml/min/1.73 sqM) Est GFR (CKD-EPI)NonAf (>60 ml/min/1.73 sqM) Glucose (74-99) mg/dL POC Glucose (mg/dL) 91 (70-110) mg/dL POC Glu [employer]ier Repair Technician ID Jennifer Silva Calcium (8.4-10.2) mg/dL Total Bilirubin (0.2-1.3) mg/dL AST (14-36) U/L ALT (4-34) U/L Alkaline Phosphatase (38-126) U/L Creatine Kinase (30-135) U/L Troponin I (0.000-0.034) ng/mL Total Protein (6.3-8.2) g/dL Albumin (3.5-5.0) g/dL 01/28/24 01/28/24 Range/Units 14:19 14:19 WBC (3.8-10.6) k/uL RBC (3.80-5.40) m/uL Hgb (11.4-16.0) gm/dL Hct (34.0-46.0) % MCV (80.0-100.0) fL MCH (25.0-35.0) pg MCHC (31.0-37.0) g/dL RDW (11.5-15.5) % Plt Count (150-450) k/uL MPV Neutrophils % % Lymphocytes % % Monocytes % % Eosinophils % % Basophils % % Neutrophils # (1.3-7.7) k/uL Lymphocytes # (1.0-4.8) k/uL Monocytes # (0-1.0) k/uL Eosinophils # (0-0.7) k/uL Basophils # (0-0.2) k/uL PT (10.0-12.5) sec INR (<1.2) APTT (22.0-30.0) sec Sodium 141 (137-145) mmol/L Potassium 3.5 (3.5-5.1) mmol/L Chloride 106 (98-107) mmol/L Carbon Dioxide 27 (22-30) mmol/L Anion Gap 8 mmol/L BUN 14 (7-17) mg/dL Creatinine 0.56 (0.52-1.04) mg/dL Est GFR (CKD-EPI)AfAm >90 (>60 ml/min/1.73 sqM) Est GFR (CKD-EPI)NonAf >90 (>60 ml/min/1.73 sqM) Glucose 90 (74-99) mg/dL POC Glucose (mg/dL) (70-110) mg/dL POC Glu Copier Repair Technician ID Calcium 9.3 (8.4-10.2) mg/dL Total Bilirubin 0.7 (0.2-1.3) mg/dL AST 33 (14-36) U/L ALT 20 (4-34) U/L Alkaline Phosphatase 83 (38-126) U/L Creatine Kinase 57 (30-135) U/L Troponin I <0.012 (0.000-0.034) ng/mL Total Protein 7.6 (6.3-8.2) g/dL Albumin 4.6 (3.5-5.0) g/dL - NIH Stroke Scale 1a. Level of Consciousness: (0) alert 1b. LOC Questions: (0) answers correctly 1c. LOC Commands: (0) performs tasks correctly 2. Best Gaze: (0) normal 3. Visual: (0) no visual loss 4. Facial Palsy: (0) normal symmetrical movement 5a. Motor Arm Left: (0) no drift 5b. Motor Arm Right: (0) no drift 6a. Motor Leg Left: (0) no drift 6b. Motor Leg Right: (0) no drift 7. Limb Ataxia: (0) absent 8. Sensory: (0) normal 9. Best Language: (1) mild/moderate aphasia 10. Dysarthria: (1) mild/moderate dysarthria 11. Extinction/Inattention: (0) no abnormality - Thrombolytic Inclusion/Exclusion Thrombolytic Exclusion Criteria: Symptom Onset > 4.5 Hours - Medical Decision Making 78 female who is here for evaluation today. Patient presents today for evaluation regards today TIA symptoms of aphasia with expressive aphasia with symptoms being resolved through the ER. 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 History of Any Multi-Drug Resistant Organisms: None Reported Past Surgical History: Adenoidectomy, Tonsillectomy Additional Past Surgical History / Comment(s): colonoscopy Past Anesthesia/Blood Transfusion Reactions: No Reported Reaction, Motion Sickness Past Psychological History: Depression, PTSD Smoking Status: Former smoker Past Alcohol Use History: Occasional Past Drug Use History: None Reported - Past Family History Father Family Medical History: Cancer Additional Family Medical History / Comment(s): ? lung cancer Brother(s) Additional Family Medical History / Comment(s): heart problems Daughter(s) Family Medical History: Diabetes Mellitus Course Vital Signs 01/28/24 01/28/24 01/28/24 13:52 14:15 14:25 Temperature 97.9 F 97.9 F Pulse Rate 72 77 72 Respiratory 18 12 16 Rate Blood Pressure 188/81 139/81 139/81 O2 Sat by Pulse 98 96 97 Oximetry 01/28/24 01/28/24 01/28/24 14:30 14:45 15:00 Temperature Pulse Rate 77 77 63 Respiratory 12 Rate Blood Pressure 180/112 178/88 181/85 O2 Sat by Pulse 98 98 98 Oximetry 01/28/24 16:58 Temperature Pulse Rate 69 Respiratory 12 Rate Blood Pressure 152/87 O2 Sat by Pulse 100 Oximetry - Reevaluation(s) Reevaluation #1: Medical records reviewed Code stroke page Reevaluation #2: Patient symptoms unchanged Reevaluation #3: Patient informed of results and questions answered Reevaluation #4: Was pt. sent in by a medical professional or institution (Dr., PA, [employer] INSTALLER, urgent care, hospital, or intermediate...) When possible be specific @ -no Did you speak to anyone other than the patient for history (EMS, parent, family, police, friend...)? What history was obtained from this source @ -no Did you review nursing and triage notes (agree or disagree)? Why? @ -agree Are old charts reviewed (outside hosp., previous admission, EMS record, old EKG, old radiological studies, urgent care reports/EKG's, intermediate records)? Report findings @ -yes Differential Diagnosis (chest pain, altered mental status, abdominal pain women, abdominal pain men, vaginal bleeding, weakness, fever, dyspnea, syncope, headache, dizziness, GI bleed, back pain, seizure, CVA, palpatations, mental health, musculoskeletal)? @ -prior EKG interpreted by me (3pts min.). @ -yes X-rays interpreted by me (1pt min.). @ -yes negative for acute disease CT interpreted by me (1pt min.). @ -Yes negative for acute disease U/S interpreted by me (1pt. min.). @ -no What testing was considered but not performed or refused? (CT, X-rays, U/S, labs)? Why? @ -none What meds were considered but not given or refused? Why? @ -none Did you discuss the management of the patient with other professionals (professionals i.e. DANA Cordero, [employer] INSTALLER, lab, RT, psych nurse, medical social consultant, production support manager, teacher, coastal/harbor defense officer, correctional casework specialist)? Give summary @ -no Was smoking cessation discussed for >3mins.? @ -no Was critical care preformed (if so, how long)? @ -yes31 Were there social determinants of health that impacted care today? How? (Homelessness, low income, unemployed, alcoholism, drug addiction, transportation, low edu. Level, literacy, decrease access to med. care, correction, rehab)? @ -none Was there de-escalation of care discussed even if they declined (Discuss DNR or withdrawal of care, Hospice)? DNR status @ -no What co-morbidities impacted this encounter? (DM, HTN, Smoking, COPD, CAD, Cancer, CVA, ARF, Chemo, Hep., AIDS, mental health diagnosis, sleep apnea, morbid obesity)? @ -none Was patient admitted / discharged? Hospital course, mention meds given and route, prescriptions, significant lab abnormalities, going to OR and other pertinent info. @ - 78 female who is here for evaluation today. Patient presents today for evaluation regards today TIA symptoms of aphasia with expressive aphasia with symptoms being resolved through the ER. Patient feels well and prefers discharge home Admitted Undiagnosed new problem with uncertain prognosis? @ -no Drug Therapy requiring intensive monitoring for toxicity (Heparin, Nitro, Insulin, Cardizem)? @ -no Were any procedures done? @ -no Diagnosis/symptom? @ -CVA transitioning TIA Acute, or Chronic, or Acute on Chronic? @ -Acute Uncomplicated (without systemic symptoms) or Complicated (systemic symptoms)? @ -Complicated Side effects of treatment? @ -no Exacerbation, Progression, or Severe Exacerbation? @ -exacerbation Poses a threat to life or bodily function? How? (Chest pain, [place], [place], pneumonia, PE, COPD, DKA, ARF, appy, cholecystitis, CVA, Diverticulitis, Homicidal, Suicidal, threat to staff... and all critical care pts) @ -yes with acute CVA Reevaluation #5: Differential CVA Ischemic stroke, hemorrhagic stroke, brain tumor, atypical migraine, Wernicke's encephalopathy, seizure, multiple sclerosis, meningitis, encephalitis, hypoglycemia, Guillain-Solorzano, electrolytes disturbance, myasthenia gravis.... This is not meant to be an all-inclusive list Critical Care Time Critical Care Time: Yes Total Critical Care Time: 31 Disposition Clinical Impression: Transient cerebral ischemia, Aphasia Disposition: HOME SELF-CARE Condition: Good Instructions (If sedation given, give patient instructions): Aphasia (DC) Is patient prescribed a controlled substance at d/c from ED?: No Referrals: Filipe Garcia MD [Primary Care Provider] - 1-2 days Time of Disposition: 16:40
[2024-01-28 14:27] LABS: Basophils % (A) 1 %; Eosinophils # (A) 0.1 k/uL (0-0.7); Eosinophils % (A) 1 %; HCT 44.4 % (34.0-46.0); HGB 15.2 gm/dL (11.4-16.0); Lymphocytes # (A) 2.5 k/uL (1.0-4.8); Lymphocytes % (A) 38 %; MCH 33.3 pg (25.0-35.0); MCHC 34.3 g/dL (31.0-37.0); MCV 97.1 fL (80.0-100.0); Mean Platelet Volume 8.1; Monocytes # (A) 0.4 k/uL (0-1.0); Monocytes % (A) 6 %; Neutrophils # (A) 3.4 k/uL (1.3-7.7); Neutrophils % (A) 52 %; Platelet Count 243 k/uL (150-450); RBC 4.57 m/uL (3.80-5.40); RDW 12.4 % (11.5-15.5); WBC 6.5 k/uL (3.8-10.6)
[2024-01-28 14:39] LABS: ALT 20 U/L (4-34); AST 33 U/L (14-36); African American GFR (CKD) >90 (>60 ml/min/1.73 sqM); Albumin 4.6 g/dL (3.5-5.0); Alkaline Phosphatase 83 U/L (38-126); Anion Gap 8 mmol/L; Blood Urea Nitrogen 14 mg/dL (7-17); Calcium 9.3 mg/dL (8.4-10.2); Carbon Dioxide 27 mmol/L (22-30); Chloride 106 mmol/L (98-107); Creatine Kinase 57 U/L (30-135); Glucose 90 mg/dL (74-99); Non-African American GFR(CKD) >90 (>60 ml/min/1.73 sqM); Potassium 3.5 mmol/L (3.5-5.1); Sodium 141 mmol/L (137-145); Total Bilirubin 0.7 mg/dL (0.2-1.3); Total Protein 7.6 g/dL (6.3-8.2)
[2024-01-28] MEDS: SODIUM CHLORIDE 0.9% 1,000 ML IV STA (14:41)
[2024-01-28 14:46] LABS: INR 0.9 (<1.2); Prothrombin Time 10.2 sec (10.0-12.5)
--- NOTE | 2024-01-28 14:46 | CT ---
EXAMINATION TYPE: CODE STROKE: CT brain wo contr DATE OF EXAM: 01/28/2024 COMPARISON: None HISTORY: 78-year-old female Neuro deficits, acute, stroke suspected. TECHNIQUE: Examination was done in axial plane without intravenous contrast. Coronal and sagittal r econstructions performed. CT DLP: 1129.6 mGycm Automated exposure control for dose reduction was used. FINDINGS: There is no evidence of acute intracranial hemorrhage, acute ischemic changes, mass, mass-effect, or extra-axial fluid collection. There is no effacement of cerebral sulci or basal subarachnoid cister ns. There is no hydrocephalus. There is no midline shift. Rosario-white matter distinction is preserv ed. Moderate patchy white matter hypodensities are present in both cerebral hemispheres. Old lacunar infa rcts bilateral basal ganglia. Some apical scarring calcifications in the carotid siphons. Mastoid air cells well pneumatized. Mild mucosal thickening throughout the ethmoid air cells. Globes are intact. IMPRESSION: Moderate patchy burden of chronic small vessel ischemic disease. No acute intracranial abnormality se en. If concern for subtle acute ischemia, MRI can be considered.
--- NOTE | 2024-01-28 14:57 | CT ---
EXAMINATION TYPE: CT angio head neck DATE OF EXAM: 01/28/2024 COMPARISON: 04/14/2018 HISTORY: 78-year-old female Neuro deficits, acute, stroke suspected. TECHNIQUE: Contiguous axial scanning of the head and neck performed with IV Contrast, patient injecte d with 65ml mL of Isovue 370. Coronal and sagittal reconstructions performed. 3-D reconstructions gen erated on a dedicated independent workstation. CT DLP: 358.2 mGycm Automated exposure control for dose reduction was used. FINDINGS: NECK: Bovine configuration to the aortic arch. The vertebral arteries are codominant and patent throughout their course. The bilateral common carotid arteries are patent. There is mild atherosclerotic changes in the bilateral carotid bifurcations, right greater than left but only mild, less than 15% narrowing proximal right ICA. Remainder of the bilateral ICAs are patent. NASCET criteria was utilized. Hypertrophic facet arthropathy. Mild to moderate degenerative disc disease. Grade 1 anterolisthesis C 3-C4 and C4-C5. HEAD: There is mild atherosclerotic change at the V3/V4 junction left vertebral artery. Otherwise, vertebra l and basilar arteries are widely patent as is the remainder of the posterior circulation. Scattered mild to moderate atherosclerotic calcifications in the bilateral carotid siphons. There are moderate focal stenoses bilateral supraclinoid ICAs, refer to thin cut axial image 66. On the right, 3 mm nodular outpouching projecting posteriorly from the supraclinoid segment and a similar but 1 mm nodular outpouching on the left. Unable to assess stability on the prior 2018 study due to lack of t hin cuts at that time. Otherwise, anterior circulation is patent. No other aneurysmal change is seen. Dural venous sinuses are patent. IMPRESSION: NECK: 1. Only mild atherosclerotic change at the bilateral carotid bifurcations. Minimal, less than 15% pro ximal right ICA narrowing. 2. No hemodynamically significant internal carotid artery stenosis on either side. Head: 3. Moderate focal stenoses in the bilateral supraclinoid ICAs. 4. A small nodular outpouching projecting posteriorly from the supraclinoid segment of the bilateral ICAs measuring 3 mm on the right and 1 mm on the left. These could represent tiny PCOM infundibula ve rsus tiny saccular aneurysms. Recommend 6 month follow-up CTA or MRA to reassess. 5. No arterial occlusion or hemodynamically significant stenosis identified.
[2024-01-28 15:23] VITALS: RESP 12
--- NOTE | 2024-01-28 16:20 | XR ---
EXAMINATION TYPE: XR chest 2V DATE OF EXAM: 01/28/2024 COMPARISON: None HISTORY: 78-year-old female confusion, stroke like symptoms, altered mental status TECHNIQUE: AP and lateral views FINDINGS: The cardiomediastinal silhouette, aorta, and pulmonary vasculature are within normal limits. Lungs an d pleural spaces are clear. IMPRESSION: No acute cardiopulmonary process.
[2024-01-28 17:26] VITALS: BP 152/87; PULSE 69
== END 2024-01-28 17:00 | disposition home or self-care (01) ==
LOC: EC 13:50
DX: G45.9 Transient cerebral ischemic attack, unspecified (principal); R47.01 Aphasia; I10 Essential (primary) hypertension; Z86.59 Personal history of other mental and behavioral disorders; Z87.891 Personal history of nicotine dependence; Z79.899 Other long term (current) drug therapy
CPT/HCPCS: 36415 ×2; 93005; 80053; 82550; 84484; 85025; 85610; 85730; 71046; 70496; 70450; 70498; 99291; 96360; Q9967

== ENCOUNTER → 2024-02-09 | Outpatient (CLI) | payer MEDICARE, OTHER, BC ==
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
== END | disposition home or self-care (01) ==
LOC: RADMRIMAIN 15:19
PROVIDERS: ATTEND Family Medicine
DX: G93.89 Other specified disorders of brain (principal); G31.9 Degenerative disease of nervous system, unspecified; G45.9 Transient cerebral ischemic attack, unspecified
CPT/HCPCS: 70553; A9585

== ENCOUNTER → 2024-02-25 | Outpatient (CLI) | payer MEDICARE, OTHER ==
[2024-02-25 16:04] LABS: African American GFR (CKD) >90 (>60 ml/min/1.73 sqM); Blood Urea Nitrogen 16 mg/dL (7-17); Non-African American GFR(CKD) 90 (>60 ml/min/1.73 sqM)
--- NOTE | 2024-02-25 17:34 | CT ---
EXAMINATION TYPE: CT angio head neck CT DLP: 313.2 mGycm, Automated exposure control for dose reduction was used. DATE OF EXAM: 02/25/2024 5:08 PM COMPARISON: 01/28/2024. 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 Axi al images are supplemented with 3D reconstructions and MIP images which were post-processed at an in dependent workstation. NASCET criteria used. Contrast used:65ml mL of Isovue 370 with IV Contrast, Oral contrast used: None. FINDINGS: CTA HEAD: No evidence of acute intracranial hemorrhage, mass effect, or midline shift. The ventricles, sulci, a nd cisterns are unremarkable. The visualized portions of the internal carotid arteries, middle cerebral arteries, anterior cerebral arteries, and posterior cerebral arteries are patent. Similar focal narrowing of the supraclinoid in ternal carotid arteries bilaterally with less than 25% stenosis. Similar focal outpouching of the sup raclinoid internal carotid artery series 9 image 40 and series 9 image 34. The basilar and vertebral arteries are patent. CTA NECK: Right Carotid System: The common carotid and external carotid arteries are patent. There is less than 25% stenosis at the c arotid bifurcation secondary to calcified plaque. The rest of the internal carotid artery is patent. Left Carotid System: The common carotid artery and external carotid artery are patent. The carotid bifurcation demonstrate s no evidence of hemodynamically significant stenosis. The remaining portions of the internal carotid artery demonstrate normal size without significant narrowing. Vertebral arteries are patent without evidence hemodynamically significant stenosis. There is a common origin of the brachiocephalic trunk and the right common carotid artery. Aortic arc h. The origins of the great vessels are patent. No evidence of hemodynamically significant stenosis. Upper thorax: IMPRESSION: 1. Scattered mild atherosclerotic change at the bilateral carotid bifurcations. No significant steno sis of the carotid bifurcations. 2. Similar focal stenoses in the bilateral supraclinoid ICAs. 3. Similar small outpouching projecting posteriorly from the supraclinoid segment of the bilateral I Annalise measuring 2 mm on the right and 1 mm on the left. These could represent tiny PCOM infundibula jarred iain tiny saccular aneurysms. 4. No arterial occlusion or hemodynamically significant stenosis identified.
== END | disposition home or self-care (01) ==
LOC: RADCTMAIN 14:51
PROVIDERS: ATTEND Psychiatry & Neurology Neurology
DX: I65.23 Occlusion and stenosis of bilateral carotid arteries (principal); R79.89 Other specified abnormal findings of blood chemistry; Z86.73 Personal history of transient ischemic attack (TIA), and cerebral infarction without residual deficits
CPT/HCPCS: 82565; 84520; 70496; 70498; 36415; Q9967

== ENCOUNTER 2024-03-05 10:13 | Day surgery (SDC) | payer BC, MEDICARE, OTHER ==
[2024-03-05] MEDS: SODIUM CHLORIDE 0.9% 1,000 ML IV ONE (10:42)
[2024-03-05 11:31] VITALS: RESP 16; TEMP 99.2
[2024-03-05] MEDS ORDERED: fentaNYL (PF) 50 MCG/ML 2 ML AMP ONE (12:32)
[2024-03-05] MEDS: BENZOCAINE SPRAY 1 CAN TOPICAL ONE (12:45)
[2024-03-05] MEDS: MIDAZOLAM 2 MG/2 ML VIAL IVP ONE (13:04)
[2024-03-05] MEDS: fentaNYL (PF) 50 MCG/ML 2 ML AMP IVP ONE (13:04)
--- NOTE | 2024-03-05 13:24 | P.PCN ---
Date of Procedure: 03/05/24 Operative Findings: TRANSESOPHAGEAL ECHOCARDIOGRAM MASSAGE THERAPY INSTRUCTOR: HUGO VELÁSQUEZ MD, RPVI INDICATION: Rule out cardiac source of embolization SEDATION: Conscious sedation COMPLICATION: None LEVEL OF SEDATION Moderate with sedation length of 12 minutes PROCEDURE DESCRIPTION: After obtaining an informed consent, the patient was brought to transesophageal echocardiogram room. Pulse oximetry and heart monitors were attached to the patient. The patient throat was sprayed using lidocaine. The patient was turned into left lateral position. After that a bite guard was placed. After an appropriate conscious sedation was initiated, the transesophageal echocardiogram was advanced through a bite guard into the mid esophagus. A 2-D echocardiogram images, color Doppler images, continuous wave images, pulse-wave images, of various cardiac structure were performed. After that the transesophageal echocardiogram probe was advanced into the stomach and fixed to obtain transgastric view was. The probe was brought into the mid esophagus. Inter-atrial septum was interrogated using 2D images, color Doppler images, and then contrast study. After that transesophageal echocardiogram was withdrawn out and upon withdrawing the descending thoracic aorta all the way up to the arch was evaluated. CONCLUSION: 1. Intact interatrial septum with no evidence of shunt 2. Normal left atrial appendage 3. Normal biventricular dimensions and systolic function 4. Trileaflet aortic valve with no stenosis with mild insufficiency 5. Moderate mitral and moderate tricuspid regurgitation 6. No evidence of pericardial effusion
[2024-03-05 14:13] VITALS: PULSE 65
[2024-03-05 17:27] VITALS: BP 153/67
== END 2024-03-05 14:55 | disposition home or self-care (01) ==
LOC: CATHCVL 10:13
PROVIDERS: ATTEND Internal Medicine Interventional Cardiology
DX: I08.3 Combined rheumatic disorders of mitral, aortic and tricuspid valves (principal); I10 Essential (primary) hypertension; E78.5 Hyperlipidemia, unspecified; I27.20 Pulmonary hypertension, unspecified; I47.10 Supraventricular tachycardia, unspecified; Z86.73 Personal history of transient ischemic attack (TIA), and cerebral infarction without residual deficits; Z79.02 Long term (current) use of antithrombotics/antiplatelets; Z79.01 Long term (current) use of anticoagulants; Z79.82 Long term (current) use of aspirin; Z79.899 Other long term (current) drug therapy; Z87.891 Personal history of nicotine dependence
CPT/HCPCS: 93312; 93320; 93325; 99152; J2250; J3010

== ENCOUNTER → 2024-05-03 | Outpatient (CLI) | payer MEDICARE ==
--- NOTE | 2024-05-03 16:25 | MR ---
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 The patient was then given intravenous contrast and multi planar, T1 fat-saturation images wer e obtained. IV Contrast: 6 cc Gadavist FINDINGS: Continued evolution of acute CVA seen on prior. There is some gliosis of the left geller ra diata/periventricular white matter on today's exam. No new evidence of restricted diffusion. Mild gen eralized cerebral atrophy changes. Scattered high T2 signal within the deep white matter throughout t he brain. No abnormal postcontrast enhancement. Susceptibility weighted imaging demonstrates no evide nce for microinfarct. The bone marrow signal is within normal limits. Paranasal sinuses and mastoid air cells: No significant paranasal sinus disease. Visualized orbits: Orbital contents are intact. IMPRESSION: 1. Continued evolution of prior acute/subacute CVA seen on 02/09/2024. No new acute CVA identified. N o abnormal postcontrast enhancement. 2. Nonspecific white matter changes, likely related to small vessel ischemic disease.
== END | disposition home or self-care (01) ==
LOC: RADMRIMAIN 14:38
PROVIDERS: ATTEND Psychiatry & Neurology Neurology
DX: G30.1 Alzheimer's disease with late onset (principal); R90.82 White matter disease, unspecified; Z86.73 Personal history of transient ischemic attack (TIA), and cerebral infarction without residual deficits
CPT/HCPCS: 70553; A9585